=== PATIENT | male | born 1945 | race African-American/Black ===

== ENCOUNTER 2017-09-13 09:06 | Outpatient (CLI) | payer MEDICARE ==
--- NOTE | 2017-09-14 12:48 | Vascular Lab Report ---
Infrarenal aortic scan Reason for exam: Abdominal pain and aortic aneurysm Comments: The aorta is patent with minimal atherosclerotic change. Flow velocities are appropriate. Maximal diameter of the infrarenal aorta is 2.29 cm. This is within normal limits. No aneurysmal dilatation is seen. The iliac arteries are patent and of normal size with normal flow velocities. The superior mesenteric artery and celiac artery are patent with normal flow velocities. Impression: No evidence of infrarenal abdominal aortic aneurysm.
== END 2017-09-13 09:07 | disposition home or self-care (01) ==
LOC: VAS 09:06
PROVIDERS: ATTEND Family Medicine
DX: I71.9 Aortic aneurysm of unspecified site, without rupture (principal); R19.7 Diarrhea, unspecified; R10.9 Unspecified abdominal pain
CPT/HCPCS: 93979